=== PATIENT | female | born 1980 | race Hispanic/Latino ===

== ENCOUNTER → 2024-12-22 | Outpatient (CLI) | payer MEDICAID ==
[2024-12-22 09:40] LABS: BASOPHILS # (AUTO) 0.03 K/uL (0.00-0.20); BASOPHILS % (AUTO) 0.4 % (0.0-5.0); EOSINOPHILS # (AUTO) 0.07 K/uL (0.00-0.70); EOSINOPHILS % (AUTO) 0.8 % (0.0-8.0); HEMATOCRIT 42.6 % (36-48); IMMATURE GRANULOCYTE ABSOLUTE 0.03 K/uL (0-1); LYMPHOCYTES # (AUTO) 2.4 K/uL (1.0-4.8); LYMPHOCYTES % (AUTO) 28.4 % (21.0-51.0); MEAN CORPUSCULAR HEMOGLOBIN 28.7 pg (27.0-33.0); MEAN CORPUSCULAR HGB CONC 33.3 g/dL (32.0-36.0); MEAN CORPUSCULAR VOLUME 86.1 fL (79-99); MONOCYTES # (AUTO) 0.5 K/uL (0.1-1.0); MONOCYTES % (AUTO) 5.4 % (3.0-13.0); NEUTROPHILS # (AUTO) 5.4 K/uL (1.8-7.7); NEUTROPHILS % (AUTO) 64.6 % (40.0-77.0); PLATELET COUNT (AUTO) 252 K/uL (130-400); RED BLOOD CELL COUNT(AUTO) 4.95 MIL/uL (4.00-5.50); RED CELL DISTRIBUTION WIDTH 13.2 % (11.0-15.5); WHITE BLOOD COUNT (AUTO) 8.4 K/uL (4.8-10.8)
[2024-12-22 09:56] LABS: % IRON SATURATION 17.6 % (22-44)
[2024-12-22 10:19] LABS: HEMOGLOBIN A1C 5.3 % (4.0-6.0)
[2024-12-22 10:23] LABS: ALBUMIN 3.8 g/dL (3.5-5.0); BILIRUBIN,TOTAL 0.5 mg/dL (0.2-1.0); CREATININE 0.7 mg/dL (0.5-1.0); POTASSIUM 3.9 mmol/L (3.5-5.1); T4 (THYROXINE) 8.5 ug/dL (4.7-13.3); THYROID STIMULATING HORMONE 1.24 uIU/mL (0.36-3.74); TOTAL PROTEIN, SERUM 8.4 g/dL (6.0-8.3)
--- NOTE | 2024-12-22 12:48 | HMCIMG ---
CHEST 1VW HISTORY: Sleep apnea COMPARISON: None FINDINGS: A frontal projection of the chest was obtained. No acute pulmonary infiltrates is seen. The heart is normal in size. Prominent interstitial markings are seen. No evidence of aortic calcification is seen. IMPRESSION: 1. No acute pulmonary infiltrate is seen.
--- NOTE | 2024-12-22 13:59 | EKG ---
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
[2024-12-23 07:14] LABS: INSULIN, RANDOM OR FASTING 26.4 uIU/mL (2.6-24.9)
== END | disposition home or self-care (01) ==
LOC: LAB 08:44
PROVIDERS: ATTEND Surgery
DX: G47.33 Obstructive sleep apnea (adult) (pediatric) (principal); I10 Essential (primary) hypertension; M19.91 Primary osteoarthritis, unspecified site
CPT/HCPCS: 36415; 71045; 80053; 80061; 82306; 82607; 82728; 82746; 83036; 83525; 83540; 83550; 83735; 84207; 84425; 84436; 84443; 84446; 84481; 84590; 84630; 85025; 93005

== ENCOUNTER → 2025-06-01 | Outpatient (CLI) | payer OTHER ==
[~2025-06-01] VITALS: Ht 10.2 cm; Wt 127.0 kg
--- NOTE | 2025-06-01 14:00 | NUR ---
BARIATRIC INITIAL ASSESSMENT VISIT 1 OF 3 Wt: 280 lb DOS: 06/01/25 Visit via telehealth. Pt seeking bariatric procedure to aid in wt loss. Pt reported she forgets to take her anxiety medications, lacks motivation to exercise and make healthier choices, heard of procedure from MD, has struggled with wt all her life, has tried to exercise to lose wt but not diet, CBW for 3-4 months, both sides of her family struggle with wt, stopped taking vitamins due to shah, has 4 children that are not picky eaters, continues to eat past fullness, Pt mainly cooks and goes grocery shopping, "money is tight right now", eats ~3 meals per day + 2 snacks per day, sweet tea ~30 oz daily, sweets 2x per day, fast food 2x per week, takes 15-20 min to eat, struggles with emotional eating, dx with anxiety and depression, no plan to become , work does not affect eating habits, does not travel often, feels like she has the means to purchase healthy food with no issue, sleeps 7-8 hours, is able to exercise, has support system, goal wt of 180 lbs in 1 year and a half, last labs were taken in January, does not like the taste of water. RD conducted 24 hr recall: Breakfast: potato + egg + 2 flour tortillas + coffee w/ creamer Lunch: 3 flour tortillas + water+ potato and egg Dinner: chicken and rice + refried beans + 2 flour tortillas + sweet tea Snack(s): almond clusters RD reviewed portion sizes with pt, reviewed healthy plate, informed Pt of importance of protein intake, Pt verbalized understanding. Pt not able to complete wt management program diet readiness questionnaire. Goals Established: -walk for 10 min 2x per week -MVI QD -cut off sweet tea Pt in agreement with goals and is aware she will need to cut carbonated beverages, sweets and caffeine prior to surgery. Recommended for Pt to complete visits with Dietitian to prepare for bariatric procedure. Suspect poor compliance for post op recommendations. Thank you for this visit. Addendum: 06/01/25 at [address] Amended: Links added.
== END | disposition home or self-care (01) ==
LOC: DTH 11:53
PROVIDERS: ATTEND Surgery
DX: E66.01 Morbid (severe) obesity due to excess calories (principal); Z71.3 Dietary counseling and surveillance; G47.33 Obstructive sleep apnea (adult) (pediatric); I10 Essential (primary) hypertension; M19.91 Primary osteoarthritis, unspecified site; Z68.42 Body mass index [BMI] 45.0-49.9, adult
CPT/HCPCS: 97802

== ENCOUNTER → 2025-06-22 | Outpatient (CLI) | payer OTHER ==
--- NOTE | 2025-06-22 09:55 | NUR ---
BARIATRIC FOLLOW UP NOTE VISIT 2 OF 3 Wt: 277.6 LBS DOS: 06/22/25 Upon follow up visit, pt presents with a 3 lb wt loss. Pt reported she continues with poor motivation, inconsistent with medications, no MVI QD, decreased sweets, does not like the diet taste, to do labs today, continues to eat past fullness, is planning to get the sleeve done, continues drinking regular creamer and sweet tea. RD conducted 24 hr food recall. Breakfast: overnight oats + belvita cookies + coffee w/ creamer Lunch: salad + avocado + [address] barclay Dinner: lasagna 2 servings + sweet tea S: [address] reviewed simple CHO and complex CHO intake, encouraged pt to decrease soft drink (even sugar free) consumption secondary to carbonation and caffeine, pt verbalized understanding. RD and pt established goals for next month: -MVI QD -increase protein intake -walk 10 min 2 x per week POOR COMPLIANCE SUSPECTED PER PT NOT MAKING ANY CHANGES SINCE LAST VISIT. Thank you for this visit Addendum: 06/22/25 at [address] Amended: Links added.
== END | disposition home or self-care (01) ==
LOC: DTH 09:08
PROVIDERS: ATTEND Surgery
DX: E66.01 Morbid (severe) obesity due to excess calories (principal); M19.91 Primary osteoarthritis, unspecified site; I10 Essential (primary) hypertension; Z68.42 Body mass index [BMI] 45.0-49.9, adult
CPT/HCPCS: 36415; 80053; 80061; 82306; 82607; 82728; 83001; 83036; 83540; 83550; 83735; 84207; 84425; 84436; 84443; 84446; 84481; 84590; 84630; 85025; 97803

== ENCOUNTER → 2025-06-22 | Outpatient (CLI) | payer OTHER, MEDICAID ==
[2025-06-22 10:22] LABS: IMMATURE GRANULOCYTE ABSOLUTE 0.02 K/uL (0-1); NUCLEATED RED BLOOD CELLS 0.0 % (0.0-0.19); PLATELET COUNT (AUTO) 273 K/uL (130-400); RED BLOOD CELL COUNT(AUTO) 4.95 MIL/uL (4.00-5.50); RED CELL DISTRIBUTION WIDTH 13.4 % (11.0-15.5); WHITE BLOOD COUNT (AUTO) 7.3 K/uL (4.8-10.8)
[2025-06-22 10:57] LABS: ASPARTATE AMINOTRANSFERASE 11.0 U/L (10-37); CREATININE 0.8 mg/dL (0.5-1.0); GLOMERULAR FILTR. RATE CALC 94.0 mL/min (>90); GLUCOSE,RANDOM 91.0 mg/dL (70-105); LDL DIRECT 110.0 mg/dL (0-99); SODIUM SERUM 138.0 mmol/L (136-145); TOTAL PROTEIN, SERUM 8.3 g/dL (6.0-8.3); UREA NITROGEN, BLOOD 11.0 mg/dL (7-18)
[2025-06-22 11:34] LABS: % IRON SATURATION 19.4 % (22-44); IRON, SERUM 59.0 mcg/dL (50-170)
== END | disposition home or self-care (01) ==
LOC: LAB 08:57
PROVIDERS: ATTEND Surgery
DX: Z53.9 Procedure and treatment not carried out, unspecified reason (principal)
CPT/HCPCS: 36415; 80053; 80061; 82306; 82607; 82728; 83001; 83036; 83540; 83550; 83735; 84207; 84425; 84436; 84443; 84446; 84481; 84590; 84630; 85025

== ENCOUNTER → 2025-07-13 | Outpatient (CLI) | payer OTHER ==
--- NOTE | 2025-07-13 10:46 | NUR ---
FOLLOW PRE-OP/POST-OP DIETARY RECOMMENDATIONS BARIATRIC PRE-OP VISIT VISIT 3 OF 3 Wt: 277 lbs DOS:07/13/25 Upon follow up visit, pt presented with no wt change. Pt reported she started taking one a day, has not incorporated protein supplements, decided on the sleeve, has been walking for 15 min 3 x per week, increased water intake, has not switched to sugar free products, no water training. RD reviewed educational material for pre-op and post-op diet recommendations with detailed phases of diet post-op. Pt was informed of importance of lifelong vitamin/mineral supplementation, choosing protein first during meals (pt was educated on higher protein requirements), choosing low calorie, sugar free, carbonated free and caffeine beverages. RD also informed pt on lifelong commitment to exercise and dietary recommendations for optimal success post surgery. RD encouraged getting blood work every 3 to 6 months, including B-vitamins, Pt verbalized understanding. RD informed Pt on moving around after procedure to prevent DVT, Pt verbalized understanding. Pt was encouraged to contact RD as questions arise and to attend support groups. RD provided protein supplement recommendations along with Bariatric Vitamin recommendations via graphics to patient. Pt with several questions, all of which were answered. Poor compliance suspected. Pt will benefit from outpatient bariatric dietitian follow up post procedure. Pt to follow up with PCP for labs. Thank you for this visit. Addendum: 07/13/25 at [address] Amended: Links added.
== END | disposition home or self-care (01) ==
LOC: DTH 09:46
PROVIDERS: ATTEND Surgery
DX: I10 Essential (primary) hypertension (principal); G47.33 Obstructive sleep apnea (adult) (pediatric); Z71.3 Dietary counseling and surveillance; M19.91 Primary osteoarthritis, unspecified site
CPT/HCPCS: 97803